=== PATIENT | female | born 1985 | race Caucasian/White ===

== ENCOUNTER 2019-10-12 13:21 | Emergency (ER) | payer SELFPAY ==
[2019-10-12] MEDS ORDERED: CEPHALEXIN MONOHYDRATE 500 MG CAP PO ONE (13:55)
--- NOTE | 2019-10-12 13:57 | ED.PDOC ---
History of Present Illness - General Time Seen by Provider: 10/12/19 13:55 Source: patient, RN notes reviewed, Vital Signs reviewed Additional Information: 34-year-old female, presents to the ER with a possible insect bite, patient said that she noticed this painful knot in the evening has been on the right gluteal since Saturday, patient denies any fever chills denies any constitutional symptoms, when patient arrived in the ER she does not appear in any distress. P atient admits cigarettes admits alcohol and THC - History of Present Illness Timing/Duration: other - saturday Improving Factors: nothing Worsening Factors: nothing Associated Symptoms: denies symptoms Allergies/Adverse Reactions: Allergies Hydrocodone Allergy (Verified 07/03/15 15:36) Sumatriptan [From Imitrex] Allergy (Verified 07/03/15 15:36) Home Medications: Ambulatory Orders Amitriptyline HCl [Elavil] 25 mg PO BEDTIME 12/09/14 Metoprolol Tartrate [Lopressor] 50 mg PO BEDTIME 12/09/14 Tramadol HCl [Ultram] 50 mg PO PRN PRN 07/03/15 Cephalexin Monohydrate [Keflex] 500 mg PO BID #10 cap 10/12/19 Review of Systems - Review of Systems Constitutional: States: no symptoms reported EENTM: States: no symptoms reported Respiratory: States: no symptoms reported Cardiology: States: no symptoms reported Gastrointestinal/Abdominal: States: no symptoms reported Genitourinary: States: no symptoms reported Musculoskeletal: States: no symptoms reported Skin: States: no symptoms reported Neurological: States: no symptoms reported Endocrine: States: no symptoms reported Hematologic/Lymphatic: States: no symptoms reported Past Medical History (General) - Patient Medical History Hx Seizures: No Hx Asthma: No Hx Hypertension: No Hx Diabetes: No Hx Gastroesophageal Reflux: No - Vaccination History Hx Tetanus, Diphtheria Vaccination: Yes Hx Influenza Vaccination: No Hx Pneumococcal Vaccination: No - Social History Hx Tobacco Use: Yes - Female History Patient : No Family Medical History - Family History Mother Family History: Unknown Living Status: Unknown Physical Exam - Physical Exam General Appearance: Alert, Well Developed, Well Groomed, Well Hydrated, Well Nourished Eye Exam: bilateral normal Ears, Nose, Throat: hearing grossly normal, normal ENT inspection, normal pharynx Neck: non-tender, full range of motion, supple, normal inspection Respiratory: chest non-tender, lungs clear, normal breath sounds, no respiratory distress, no accessory muscle use Cardiovascular/Chest: normal peripheral pulses, regular rate, rhythm, no edema, no gallop, no JVD, no murmur Peripheral Pulses: radial,right: 2+, radial,left: 2+ Gastrointestinal/Abdominal: normal bowel sounds, non tender, soft, no organomegaly, no pulsatile mass Rectal Exam: other - 0.5 cm pustule In the inner aspect of the right gluteus not extending into the rectal area, with some associated cellulitis Back Exam: normal inspection, no CVA tenderness, no vertebral tenderness, CVA tenderness (R) Extremity: normal range of motion, non-tender, normal inspection, no pedal edema, no calf tenderness 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, no motor/sensory deficits, alert, normal mood/affect, oriented x 3 Skin Exam: normal color Lymphatic: no adenopathy Progress - Progress Progress: Presented with a cellulitic area right in the medial aspect of the right gluteus not extending into the rectum, I discussed with the patient that this point is not a drainable abscess, but I told the patient not to poke at it, will discharge home with Keflex, and I also recommended the use of warm compresses, No need for surgical evaluation since the area of cellulitic and pustule is not near the rectum so is not a perirectal abscess Patient that this could be a spider bite or insect bite or folliculitis, is hard to say at this point, but of course patient will need to return to ER if there is no improvement of symptoms or there is any rectal pain with bowel movement 10/12/19 13:58 Departure - Departure Clinical Impression: Cellulitis and abscess of buttock Disposition: Discharge to Home or Self Care Diet: resume usual diet Activity: walking as tolerated Referrals: Sona Shirley FNP [Primary Care Provider] - 1-2 Weeks Prescriptions: Cephalexin Monohydrate [Keflex] 500 mg PO BID #10 cap Home Medications: Ambulatory Orders Amitriptyline HCl [Elavil] 25 mg PO BEDTIME 12/09/14 Metoprolol Tartrate [Lopressor] 50 mg PO BEDTIME 12/09/14 Tramadol HCl [Ultram] 50 mg PO PRN PRN 07/03/15 Cephalexin Monohydrate [Keflex] 500 mg PO BID #10 cap 10/12/19 Additional Instructions: Return to the ER if there is any worsening condition or rectal pain while having a bowel movement
[2019-10-12 14:18] VITALS: BP 113/77; TEMP 97.9; O2SAT 99
== END 2019-10-12 14:16 | disposition home or self-care (01) ==
LOC: ER 13:21
DX: L02.31 Cutaneous abscess of buttock (principal); F17.210 Nicotine dependence, cigarettes, uncomplicated; Z88.5 Allergy status to narcotic agent; Z88.8 Allergy status to other drugs, medicaments and biological substances